=== PATIENT | female | born 1950 | race American Indian/Alaskan Native ===

== ENCOUNTER 2016-08-02 08:36 | Outpatient (CLI) | payer OTHER, MEDICARE ==
--- NOTE | 2016-08-02 14:45 | Ultrasound Report ---
ABDOMINAL ULTRASOUND: 08/02/16 08:36:00 CLINICAL: Abdominal pain, back pain and nausea. FINDINGS: High-resolution ultrasound demonstrated a normal size liver with normal contour and normal echogenicity. No liver mass. Normal hepatic vasculature and inferior vena cava. Normally distended gallbladder with no stones. The gall bladder wall measures 1.2 mm in thickness. Normal bile ducts. The common bile duct measured 3.1 mm diameter. The pancreas was well imaged and normal. Normal abdominal aorta. A normal spleen measured 7.8cm. Normal kidneys with normal echogenicity and normal non-dilated renal collecting systems and ureters. The right kidney measured 10.5 x 4.3 x 5.0cm. The left kidney measured 8.0 x 4.9 x 4.2cm. No renal mass or calculus. No ascites or mass. IMPRESSION: Slightly small left kidney but otherwise normal study.
== END 2016-08-02 08:37 | disposition home or self-care (01) ==
LOC: SPVWC 08:36
PROVIDERS: ATTEND Internal Medicine
DX: R10.9 Unspecified abdominal pain (principal); R11.0 Nausea; M54.9 Dorsalgia, unspecified
CPT/HCPCS: 76700